=== PATIENT | female | born 1975 | race Caucasian/White ===

== ENCOUNTER 2019-10-31 09:01 | Inpatient (IN) ==
[2019-10-31] MEDS ORDERED: CeFAZolin Syr 2,000MG/20 ML 2,000 MG/20 ML SYRINGE IVPB ONE (09:29)
[2019-10-31] MEDS ORDERED: Ringers Solution, Lactated 1,000 ML IVC SCH (09:30)
[2019-10-31] MEDS ORDERED: *HR* Succinylcholine 200 MG/10 ML VIAL IVP ONE (09:35)
[2019-10-31] MEDS ORDERED: Ondansetron 4 MG/2 ML VIAL ONE (09:35)
[2019-10-31] MEDS ORDERED: *HR* Midazolam HCl 2 MG/2 ML VIAL ONE (09:35)
[2019-10-31] MEDS ORDERED: Ketorolac 30 MG/ML VIAL ONE (09:35)
[2019-10-31] MEDS ORDERED: Dexamethasone 4 MG/ML VIAL ONE (09:35)
[2019-10-31] MEDS ORDERED: Lidocaine HCL 4 ML Topical Solution (Laryng-O-Jet Kit Sterile Pak) TP ONE (09:35)
[2019-10-31] MEDS ORDERED: *HR* Propofol 200 MG/20 ML VIAL IVP ONE (09:35)
[2019-10-31] MEDS ORDERED: *HR* PHENYLEPHRINE 1,000 MCG/10 ML SYRINGE IVP ONE (09:35)
[2019-10-31] MEDS ORDERED: Lidocaine -MPF 2% 2 ML VIAL ONE (09:35)
[2019-10-31] MEDS ORDERED: *HR* Rocuronium Bromide 50 MG/5 ML VIAL ONE ×2 (09:35→12:54)
[2019-10-31] MEDS ORDERED: *HR* FentaNYL (PF) 100 MCG/2 ML VIAL ONE ×2 (09:35→12:53)
[2019-10-31] MEDS ORDERED: Albuterol 2.5 MG/3 ML NEBULIZER IH PRN (09:41)
[2019-10-31] MEDS ORDERED: Famotidine 20 MG/2 ML VIAL IVP ONE (09:50)
[2019-10-31] MEDS ORDERED: *HR* FentaNYL (PF) 100 MCG/2 ML VIAL IVP PRN (09:51)
[2019-10-31] MEDS ORDERED: Acetaminophen IV 1,000 MG/100 ML INFUS..BTL IVPB ONE (09:51)
[2019-10-31] MEDS ORDERED: *HR* Promethazine 25 MG/ML VIAL IVP PRN (09:58)
[2019-10-31] MEDS ORDERED: *HR* OxyCODONE Immed Rel 5 MG TABLET PO PRN (09:58)
[2019-10-31] MEDS ORDERED: Ondansetron 4 MG/2 ML VIAL IVP ONE (09:58)
[2019-10-31] MEDS ORDERED: Lidocaine Jelly 6ml 1 APPL/6 ML JEL.PF.APP ONE (10:41)
[2019-10-31] MEDS ORDERED: Naloxone 0.4 MG/ML INJ IVP PRN (14:39)
[2019-10-31] MEDS: 0.9 % Sodium Chloride 1,000 ML IVC SCH (14:54)
[2019-10-31] MEDS: *HR* Heparin 5,000 UNIT/ML VIAL SQ SCH ×2 (14:54→23:00)
[2019-10-31] MEDS: Gabapentin 300 MG CAPSULE PO SCH ×2 (14:56→19:57)
[2019-10-31] MEDS: Ipratropium/Albuterol Neb 3 ML IH SCH ×3 (17:00→23:43)
[2019-10-31] MEDS: Ketorolac 15 MG/ML VIAL IVP SCH ×2 (17:43→22:59)
[2019-10-31] MEDS ORDERED: Morphine Sulfate 2 MG/ML SYRINGE IVP ONE (18:59)
[2019-10-31] MEDS: Sennosides/Docusate Sodium TABLET PO SCH (19:57)
[2019-10-31] MEDS: *HR* HYDROcodone/Acet 5/325 mg TABLET PO PRN (19:57)
[2019-10-31] MEDS: Famotidine 20 MG TABLET PO SCH (19:57)
[2019-11-01] MEDS: Ipratropium/Albuterol Neb 3 ML IH SCH ×6 (04:02→23:18)
[2019-11-01] MEDS: *HR* HYDROcodone/Acet 5/325 mg TABLET PO PRN ×4 (04:35→21:05)
[2019-11-01] MEDS: 0.9 % Sodium Chloride 1,000 ML IVC SCH (04:36)
[2019-11-01 05:25] LABS: Hematocrit 33.6 % (35.3-44.9); Hemoglobin 9.8 g/dL (11.5-15.4); Mean Corpuscular HGB Conc 29.2 g/dL (31.6-35.5); Mean Corpuscular Hemoglobin 23.4 pg (28.0-33.3); Mean Corpuscular Volume 80.2 fL (83.0-100.0); Mean Platelet Volume 9.2 fL (9.4-12.4); Platelet Count 326 K/mcL (140-400); Red Blood Count 4.19 M/mcL (3.82-4.97); Red Cell Distribution Width 18.2 % (11.5-14.5); White Blood Count 11.3 K/mcL (4.3-11.1)
[2019-11-01] MEDS: Ketorolac 15 MG/ML VIAL IVP SCH ×4 (05:39→23:39)
[2019-11-01] MEDS: *HR* Heparin 5,000 UNIT/ML VIAL SQ SCH ×3 (05:40→21:05)
[2019-11-01 05:44] LABS: % Iron Saturation 6 % (15-50); BUN/Creatinine Ratio 24 (6-26); Blood Urea Nitrogen 14 mg/dL (6-20); Calcium 8.5 mg/dL (8.6-10.3); Carbon Dioxide 22 mEq/L (23-29); Chloride 113 mEq/L (98-107); Glucose 130 mg/dL (70-105); Iron 26 mcg/dL (50-170); Osmolality,Calculated 278 (280-300); Potassium 3.8 mEq/L (3.5-5.1); Sodium 133 mEq/L (136-145); Transferrin 291 mg/dL (203-362); eGFR For African Americans > 60 (> 60); eGFR For Non-African Americans > 60 (> 60)
[2019-11-01] MEDS: Sennosides/Docusate Sodium TABLET PO SCH ×2 (08:29→21:05)
[2019-11-01] MEDS: Famotidine 20 MG TABLET PO SCH ×2 (08:29→21:05)
[2019-11-01] MEDS: Gabapentin 300 MG CAPSULE PO SCH ×3 (08:30→21:05)
[2019-11-01] MEDS: PARoxetine 20 MG TABLET PO SCH (08:30)
[2019-11-01] MEDS ORDERED: Iron Sucrose Complex 400 MG in 0.9 % Sodium Chloride 250 ML IVPB ONE (10:49)
[2019-11-02] MEDS: Ipratropium/Albuterol Neb 3 ML IH SCH ×6 (03:25→23:39)
[2019-11-02] MEDS: Ketorolac 15 MG/ML VIAL IVP SCH ×3 (05:59→17:45)
[2019-11-02] MEDS: *HR* Heparin 5,000 UNIT/ML VIAL SQ SCH ×3 (06:01→21:25)
[2019-11-02] MEDS ORDERED: Iron Sucrose Complex 400 MG in 0.9 % Sodium Chloride 250 ML IVPB ONE (08:00)
[2019-11-02] MEDS ORDERED: Sennosides/Docusate Sodium TABLET ONE (08:39)
[2019-11-02] MEDS ORDERED: Gabapentin 300 MG CAPSULE ONE (08:39)
[2019-11-02] MEDS ORDERED: Famotidine 20 MG TABLET ONE (08:39)
[2019-11-02] MEDS ORDERED: Ipratropium/Albuterol Neb 3 ML ONE ×2 (08:39→15:24)
[2019-11-02] MEDS ORDERED: PARoxetine 20 MG TABLET PO ONE (08:39)
[2019-11-02] MEDS ORDERED: *HR* HYDROcodone/Acet 5/325 mg TABLET ONE (08:39)
[2019-11-02] MEDS: *HR* HYDROcodone/Acet 5/325 mg TABLET PO PRN (16:31)
[2019-11-02] MEDS: Gabapentin 300 MG CAPSULE PO SCH ×3 (16:31→21:25)
[2019-11-02] MEDS: Sennosides/Docusate Sodium TABLET PO SCH ×2 (16:43→21:25)
[2019-11-02] MEDS: PARoxetine 20 MG TABLET PO SCH (16:43)
[2019-11-02] MEDS: Famotidine 20 MG TABLET PO SCH ×2 (16:43→21:25)
[2019-11-02] MEDS ORDERED: *HR* Warfarin 4 MG TABLET PO ONE (18:00)
[2019-11-03] MEDS: Ketorolac 15 MG/ML VIAL IVP SCH ×2 (00:33→05:20)
[2019-11-03] MEDS: *HR* HYDROcodone/Acet 5/325 mg TABLET PO PRN ×2 (00:40→08:35)
[2019-11-03] MEDS: Ipratropium/Albuterol Neb 3 ML IH SCH ×2 (03:30→07:36)
[2019-11-03] MEDS: *HR* Heparin 5,000 UNIT/ML VIAL SQ SCH (05:20)
[2019-11-03 07:28] VITALS: BP 121/76
[2019-11-03] MEDS: Famotidine 20 MG TABLET PO SCH (08:35)
[2019-11-03] MEDS: Sennosides/Docusate Sodium TABLET PO SCH (08:35)
[2019-11-03] MEDS: Gabapentin 300 MG CAPSULE PO SCH (08:35)
[2019-11-03] MEDS: PARoxetine 20 MG TABLET PO SCH (08:35)
== END 2019-11-03 09:30 | disposition home or self-care (01) | DRG 164 ==
LOC: SAMDAY 09:01 → 2NNU 14:36
PROVIDERS: ADMIT Thoracic Surgery (Cardiothoracic Vascular Surgery); ATTEND Thoracic Surgery (Cardiothoracic Vascular Surgery)
PROC: IRLYMPH (2019-10-31 10:45)

== ENCOUNTER 2020-01-07 15:45 | Observation (INO) ==
[2020-01-07] MEDS ORDERED: Isovue-370 500 ML BOTTLE IVP ONE (16:05)
[2020-01-07 16:07] LABS: Basophils % 0.5 %; Eosinophils # 0.2 K/mcL (0.0-0.6); Eosinophils % 2.2 %; Hematocrit 46.3 % (35.3-44.9); Hemoglobin 14.9 g/dL (11.5-15.4); Immature Granulocytes % 0.4 % (0-4); Lymphocytes # 2.5 K/mcL (0.6-4.6); Lymphocytes % 32.2 %; Mean Corpuscular HGB Conc 32.2 g/dL (31.6-35.5); Mean Corpuscular Hemoglobin 28.2 pg (28.0-33.3); Mean Corpuscular Volume 87.7 fL (83.0-100.0); Mean Platelet Volume 8.8 fL (9.4-12.4); Monocytes # 0.5 K/mcL (0.0-1.3); Monocytes % 6.1 %; Neutrophils # 4.6 K/mcL (1.6-8.9); Platelet Count 302 K/mcL (140-400); Red Blood Count 5.28 M/mcL (3.82-4.97); Red Cell Distribution Width 16.3 % (11.5-14.5); Segmented Neutrophils % 58.6 %; White Blood Count 7.9 K/mcL (4.3-11.1)
[2020-01-07] MEDS ORDERED: *HR* FentaNYL (PF) 100 MCG/2 ML VIAL IVP ONE (16:14)
[2020-01-07] MEDS ORDERED: 0.9 % Sodium Chloride 1,000 ML IVC ONE (16:14)
[2020-01-07 16:25] LABS: Bilirubin,Urine Negative (Negative); Blood,Urine Negative (Negative); Clarity,Urine Clear (Clear); Color,Urine Yellow (Yellow); Glucose,Urine (UA) Normal (Normal); Ketones,Urine Negative (Negative); Leukocyte Esterase,Urine Negative (Negative); Nitrite,Urine Negative (Negative); PH,Urine 6.5 pH Units (5.0-8.0); Protein,Urine Negative (Neg-Trace); Specific Gravity,Urine 1.016 (1.010-1.025); Urobilinogen,Urine Normal (Normal)
[2020-01-07 16:31] LABS: BUN/Creatinine Ratio 21 (6-26); Blood Urea Nitrogen 15 mg/dL (6-20); Calcium 8.5 mg/dL (8.6-10.3); Carbon Dioxide 24 mEq/L (23-29); Chloride 103 mEq/L (98-107); Glucose 84 mg/dL (70-105); Osmolality,Calculated 278 (280-300); Potassium 3.8 mEq/L (3.5-5.1); Sodium 134 mEq/L (136-145); Troponin I < 0.03 ng/mL (< 0.04); eGFR For African Americans > 60 (> 60); eGFR For Non-African Americans > 60 (> 60)
[2020-01-07 16:32] LABS: INR 1.7; Prothrombin Time 19.3 Seconds (9.4-12.1)
[2020-01-07 16:35] LABS: Activated Partial Thrombo Time 37.6 Seconds (26.0-36.0)
[2020-01-07] MEDS ORDERED: *HR* Heparin 5,000 UNIT/ML VIAL IVP PRN ×2 (16:44)
[2020-01-07] MEDS ORDERED: *HR* Heparin 5,000 UNIT/ML VIAL IVP ONE (16:44)
[2020-01-07] MEDS ORDERED: Heparin 25,000 UNIT/250 ML D5W 25,000 UNIT/250 ML IV.SOLN IVC SCH (16:45)
[2020-01-07 16:59] LABS: Heparin anti-factor XA UFH 0.04 IU/mL (0.30-0.70)
[2020-01-07] MEDS ORDERED: Warfarin perPT PO PRN (18:00)
[2020-01-07] MEDS ORDERED: Ondansetron 4 MG/2 ML VIAL IVP PRN (18:05)
[2020-01-07] MEDS ORDERED: Naloxone 0.4 MG/ML INJ IVP PRN (18:05)
[2020-01-07] MEDS: Gabapentin 300 MG CAPSULE PO SCH (20:55)
[2020-01-07] MEDS ORDERED: *HR* Warfarin 5 MG TABLET PO ONE (21:10)
[2020-01-08 01:20] LABS: Basophils % 0.4 %; Eosinophils # 0.2 K/mcL (0.0-0.6); Eosinophils % 2.7 %; Hematocrit 41.1 % (35.3-44.9); Hemoglobin 13.4 g/dL (11.5-15.4); INR 1.7; Immature Granulocytes % 0.2 % (0-4); Lymphocytes # 3.1 K/mcL (0.6-4.6); Lymphocytes % 36.6 %; Mean Corpuscular HGB Conc 32.6 g/dL (31.6-35.5); Mean Corpuscular Hemoglobin 29.2 pg (28.0-33.3); Mean Corpuscular Volume 89.5 fL (83.0-100.0); Mean Platelet Volume 9.2 fL (9.4-12.4); Monocytes # 0.6 K/mcL (0.0-1.3); Monocytes % 6.5 %; Neutrophils # 4.6 K/mcL (1.6-8.9); Platelet Count 267 K/mcL (140-400); Prothrombin Time 18.8 Seconds (9.4-12.1); Red Blood Count 4.59 M/mcL (3.82-4.97); Red Cell Distribution Width 16.3 % (11.5-14.5); Segmented Neutrophils % 53.6 %; White Blood Count 8.6 K/mcL (4.3-11.1)
[2020-01-08 01:33] LABS: BUN/Creatinine Ratio 21 (6-26); Blood Urea Nitrogen 13 mg/dL (6-20); Calcium 7.9 mg/dL (8.6-10.3); Carbon Dioxide 22 mEq/L (23-29); Chloride 109 mEq/L (98-107); Glucose 86 mg/dL (70-105); Magnesium 2.2 mg/dL (1.6-2.6); Osmolality,Calculated 283 (280-300); Phosphorous 2.7 mg/dL (2.7-4.5); Potassium 3.9 mEq/L (3.5-5.1); Sodium 137 mEq/L (136-145); eGFR For African Americans > 60 (> 60); eGFR For Non-African Americans > 60 (> 60)
[2020-01-08 01:35] LABS: Troponin I < 0.03 ng/mL (< 0.04)
[2020-01-08] MEDS: Gabapentin 300 MG CAPSULE PO SCH (08:45)
[2020-01-08] MEDS ORDERED: PARoxetine 20 MG TABLET PO SCH (09:00)
[2020-01-08 11:46] VITALS: BP 99/68
[2020-01-08] MEDS ORDERED: *HR* Warfarin 5 MG TABLET PO ONE (18:00)
== END 2020-01-08 12:25 | disposition home or self-care (01) ==
LOC: 3BNU 15:45 → EMEROOARM 15:45 → SUATTDRO 18:22 → 3BNU 18:55
PROVIDERS: ADMIT Internal Medicine; ATTEND Internal Medicine

== ENCOUNTER 2020-04-04 19:23 | Observation (INO) ==
[2020-04-04] MEDS ORDERED: Naloxone 0.4 MG/ML INJ IVP PRN (21:48)
[2020-04-04] MEDS ORDERED: Ondansetron 4 MG/2 ML VIAL IVP PRN (21:48)
[2020-04-04] MEDS ORDERED: Acetaminophen 325 MG TABLET PO PRN (21:48)
[2020-04-04] MEDS ORDERED: Potassium Chloride 40 MEQ, Lidocaine 1% 2 ML in 0.9 % Sodium Chloride 500 ML IVPB ONE (21:50)
[2020-04-04 22:25] LABS: Basophils % 0.2 %; Eosinophils # 0.1 K/mcL (0.0-0.6); Eosinophils % 1.4 %; Hematocrit 42.7 % (35.3-44.9); Hemoglobin 13.7 g/dL (11.5-15.4); Immature Granulocytes % 0.2 % (0-4); Lymphocytes # 2.8 K/mcL (0.6-4.6); Lymphocytes % 29.4 %; Mean Corpuscular HGB Conc 32.1 g/dL (31.6-35.5); Mean Corpuscular Volume 90.3 fL (83.0-100.0); Mean Platelet Volume 8.9 fL (9.4-12.4); Monocytes # 0.5 K/mcL (0.0-1.3); Monocytes % 5.4 %; Neutrophils # 6.1 K/mcL (1.6-8.9); Platelet Count 266 K/mcL (140-400); Red Blood Count 4.73 M/mcL (3.82-4.97); Red Cell Distribution Width 13.9 % (11.5-14.5); Segmented Neutrophils % 63.4 %; White Blood Count 9.6 K/mcL (4.3-11.1)
[2020-04-04] MEDS: 0.9 % Sodium Chloride 1,000 ML IVC SCH (22:52)
[2020-04-05 06:18] LABS: Basophils % 0.4 %; Eosinophils # 0.2 K/mcL (0.0-0.6); Eosinophils % 2.4 %; Hematocrit 39.9 % (35.3-44.9); Hemoglobin 13.1 g/dL (11.5-15.4); Immature Granulocytes % 0.1 % (0-4); Lymphocytes # 2.5 K/mcL (0.6-4.6); Lymphocytes % 35.7 %; Mean Corpuscular HGB Conc 32.8 g/dL (31.6-35.5); Mean Corpuscular Hemoglobin 30.3 pg (28.0-33.3); Mean Corpuscular Volume 92.1 fL (83.0-100.0); Mean Platelet Volume 8.9 fL (9.4-12.4); Monocytes # 0.5 K/mcL (0.0-1.3); Monocytes % 6.9 %; Neutrophils # 3.9 K/mcL (1.6-8.9); Platelet Count 255 K/mcL (140-400); Red Blood Count 4.33 M/mcL (3.82-4.97); Segmented Neutrophils % 54.5 %; White Blood Count 7.1 K/mcL (4.3-11.1)
[2020-04-05 06:25] LABS: INR 2.6; Prothrombin Time 29.9 Seconds (9.4-12.1)
[2020-04-05 06:37] LABS: BUN/Creatinine Ratio 12 (6-26); Blood Urea Nitrogen 7 mg/dL (6-20); Calcium 8.4 mg/dL (8.6-10.3); Carbon Dioxide 24 mEq/L (23-29); Chloride 111 mEq/L (98-107); Glucose 85 mg/dL (70-105); Osmolality,Calculated 285 (280-300); Phosphorous 2.4 mg/dL (2.7-4.5); Potassium 3.6 mEq/L (3.5-5.1); Sodium 139 mEq/L (136-145); eGFR For African Americans > 60 (> 60); eGFR For Non-African Americans > 60 (> 60)
[2020-04-05] MEDS: 0.9 % Sodium Chloride 1,000 ML IVC SCH (09:32)
[2020-04-05 10:12] VITALS: BP 96/59
[2020-04-05 12:27] LABS: Hematocrit 40.1 % (35.3-44.9); Hemoglobin 12.8 g/dL (11.5-15.4)
== END 2020-04-05 13:41 | disposition home or self-care (01) ==
LOC: 3ANU → SUATTDRO 21:26
PROVIDERS: ADMIT Student in an Organized Health Care Education/Training Program; ATTEND Family Medicine

== ENCOUNTER 2021-03-08 18:45 | Observation (INO) ==
[2021-03-09] MEDS ORDERED: Ondansetron 4 MG/2 ML VIAL IVP PRN (00:13)
[2021-03-09] MEDS ORDERED: Naloxone 0.4 MG/ML INJ IVP PRN (00:13)
[2021-03-09] MEDS ORDERED: Nitroglycerin 0.4 MG TAB.SUBL SL PRN (00:16)
[2021-03-09] MEDS ORDERED: Morphine Sulfate 2 MG/ML SYRINGE IVP PRN (00:16)
[2021-03-09] MEDS ORDERED: Perflutren Lipid Microsphere 1.3 ML in 0.9 % Sodium Chloride 8.7 ML IVP PRN (00:17)
[2021-03-09 00:56] LABS: Basophils % 0.4 %; Eosinophils # 0.5 K/mcL (0.0-0.6); Eosinophils % 4.6 %; Hematocrit 34.5 % (35.3-44.9); Hemoglobin 10.1 g/dL (11.5-15.4); Immature Granulocytes % 0.4 % (0-4); Lymphocytes # 3.1 K/mcL (0.6-4.6); Lymphocytes % 31.9 %; Mean Corpuscular HGB Conc 29.3 g/dL (31.6-35.5); Mean Corpuscular Hemoglobin 23.4 pg (28.0-33.3); Mean Platelet Volume 8.7 fL (9.4-12.4); Monocytes # 0.8 K/mcL (0.0-1.3); Monocytes % 7.9 %; Neutrophils # 5.3 K/mcL (1.6-8.9); Platelet Count 383 K/mcL (140-400); Red Blood Count 4.31 M/mcL (3.82-4.97); Red Cell Distribution Width 15.1 % (11.5-14.5); Segmented Neutrophils % 54.8 %; White Blood Count 9.7 K/mcL (4.3-11.1)
[2021-03-09 01:04] LABS: INR 1.4; Prothrombin Time 16.2 Seconds (9.4-12.1)
[2021-03-09 01:07] LABS: Activated Partial Thrombo Time 30.1 Seconds (26.0-36.0)
[2021-03-09 01:16] LABS: Alanine Aminotransferase 15 Units/L (7-52); Albumin 3.5 g/dL (3.5-5.7); Albumin/Globulin Ratio 1.3 (1.1-2.2); Alkaline Phosphatase 57 Units/L (34-104); Aspartate Amino Transferase 15 Units/L (13-39); BUN/Creatinine Ratio 19 (6-26); Bilirubin,Total 0.2 mg/dL (0.3-1.0); Blood Urea Nitrogen 12 mg/dL (6-20); Calcium 8.3 mg/dL (8.6-10.3); Carbon Dioxide 22 mEq/L (23-29); Chloride 109 mEq/L (98-107); Chol/HDL Ratio 4.9 (0-4.9); Cholesterol 197 mg/dL (< 200); Globulin 2.8 g/dL (2.4-3.5); Glucose 84 mg/dL (70-105); HDL Cholesterol 40 mg/dL (40-59); LDL Cholesterol,Calculated 114 mg/dL (< 100); Osmolality,Calculated 283 (280-300); Sodium 137 mEq/L (136-145); Total Protein 6.3 g/dL (6.4-8.9); Triglycerides 213 mg/dL (< 150); eGFR For African Americans > 60 (> 60); eGFR For Non-African Americans > 60 (> 60)
[2021-03-09 01:17] LABS: Bilirubin,Urine Negative (Negative); Blood,Urine Negative (Negative); Clarity,Urine Clear (Clear); Color,Urine Light-Yellow (Yellow); Glucose,Urine (UA) Normal (Normal); Ketones,Urine Negative (Negative); Leukocyte Esterase,Urine Negative (Negative); Nitrite,Urine Negative (Negative); Protein,Urine Negative (Neg-Trace); Specific Gravity,Urine 1.029 (1.010-1.025); Urobilinogen,Urine Normal (Normal)
[2021-03-09 01:18] LABS: Troponin I < 0.03 ng/mL (< 0.04)
[2021-03-09 01:26] LABS: Amphetamine Screen,Urine Negative ng/mL (Cutoff=1000); Barbiturate Screen,Urine Negative ng/mL (Cutoff=200); Benzodiazepines Screen,Urine Negative ng/mL (Cutoff=200); Cannabinoid Screen,Urine Negative ng/mL (Cutoff = 50); Cocaine Screen,Urine Negative ng/mL (Cutoff= 300); Opiate Screen,Urine Negative ng/mL (Cutoff=300); Phencyclidine Screen,Urine Negative ng/mL (Cutoff=25)
[2021-03-09] MEDS ORDERED: Calcium Gluconate 1gm/50mL 1 GM/50 ML BAG IVPB ONE (01:52)
[2021-03-09] MEDS ORDERED: Acetaminophen 325 MG TABLET PO PRN (02:32)
[2021-03-09] MEDS ORDERED: Regadenoson 0.4 MG/5 ML SYRINGE IVP ONE (06:10)
[2021-03-09 06:23] LABS: Hematocrit 33.5 % (35.3-44.9); Hemoglobin 9.8 g/dL (11.5-15.4); Mean Corpuscular HGB Conc 29.3 g/dL (31.6-35.5); Mean Corpuscular Hemoglobin 23.4 pg (28.0-33.3); Mean Corpuscular Volume 80.1 fL (83.0-100.0); Mean Platelet Volume 8.4 fL (9.4-12.4); Platelet Count 347 K/mcL (140-400); Red Blood Count 4.18 M/mcL (3.82-4.97); White Blood Count 9.9 K/mcL (4.3-11.1)
[2021-03-09 06:42] LABS: BUN/Creatinine Ratio 18 (6-26); Blood Urea Nitrogen 11 mg/dL (6-20); Calcium 8.5 mg/dL (8.6-10.3); Carbon Dioxide 23 mEq/L (23-29); Chloride 108 mEq/L (98-107); Glucose 84 mg/dL (70-105); Magnesium 1.9 mg/dL (1.6-2.6); Osmolality,Calculated 283 (280-300); Sodium 137 mEq/L (136-145); eGFR For African Americans > 60 (> 60); eGFR For Non-African Americans > 60 (> 60)
[2021-03-09 06:43] LABS: % Iron Saturation 2 % (15-50); Iron 11 mcg/dL (50-170); Transferrin 316 mg/dL (203-362)
[2021-03-09 07:01] LABS: Ferritin < 8 ng/mL (10-120)
[2021-03-09 07:03] LABS: Estimated Average Glucose 108 mg/dl; Hemoglobin A1C 5.4 %
[2021-03-09 07:06] LABS: Folate 21.8 ng/mL (3.0-16.0)
[2021-03-09] MEDS ORDERED: Aspirin Enteric Coated 81 MG Tablet PO SCH (09:00)
[2021-03-09] MEDS ORDERED: PARoxetine 30 MG TABLET PO SCH (09:00)
[2021-03-09 10:00] VITALS: BP 97/60; PULSE 81; TEMP 98.5; O2SAT 97
[2021-03-09] MEDS ORDERED: *HR* Rivaroxaban 10 MG TABLET PO SCH (17:00)
[2021-03-09] MEDS ORDERED: Gabapentin 300 MG CAPSULE PO SCH (21:00)
== END 2021-03-09 15:05 | disposition home or self-care (01) ==
LOC: 2ANU
PROVIDERS: ADMIT Pharmacist; ATTEND Pharmacist